=== PATIENT | male | born 1965 | race Caucasian/White ===

== ENCOUNTER 2017-10-23 21:09 | Emergency (ER) | payer OTHER ==
[~2017-10-23] VITALS: Ht 175.3 cm; Wt 74.8 kg
== END 2017-10-23 22:46 | disposition home or self-care (01) ==
LOC: ER 21:09
DX: T15.11XA Foreign body in conjunctival sac, right eye, initial encounter (principal)

== ENCOUNTER 2018-06-12 23:11 | Emergency (ER) | payer OTHER ==
[~2018-06-12] VITALS: Ht 180.3 cm; Wt 90.7 kg
[2018-06-13] MEDS ORDERED: KETO10TA2 PO (01:23)
== END 2018-06-13 01:29 | disposition home or self-care (01) ==
LOC: ER 23:11
DX: S60.212A Contusion of left wrist, initial encounter (principal); W18.39XA Other fall on same level, initial encounter; Y93.89 Activity, other specified; Y92.89 Other specified places as the place of occurrence of the external cause; Y99.8 Other external cause status

== ENCOUNTER 2024-03-05 09:39 | Emergency (ER) | payer OTHER ==
[~2024-03-05] VITALS: Ht 180.3 cm; Wt 90.7 kg
[~2024-03-05 09:39] MED LIST: KETO10TA2 PO
[2024-03-05] MEDS ORDERED: COZAAR25 MG (10:33)
[2024-03-05] MEDS ORDERED: MAXITROL EYE DRO5 ML OP (10:45)
== END 2024-03-05 11:09 | disposition home or self-care (01) ==
LOC: ER 09:41
DX: H57.11 Ocular pain, right eye (principal); I10 Essential (primary) hypertension; Z88.0 Allergy status to penicillin